=== PATIENT | male | born 1995 | race Caucasian/White ===

== ENCOUNTER 2017-10-14 14:46 | Emergency (ER) | payer SELFPAY ==
[~2017-10-14] VITALS: Ht 180.3 cm; Wt 70.3 kg
[2017-10-14 15:08] VITALS: BP 137/81
--- NOTE | 2017-10-14 15:47 | Emergency Room Report ---
History of Present Illness General Chief Complaint: Laceration Source: Patient Nursing Documentation-[facility] Past Medical History: No Stated History Physical Exam Vital Signs Date Time Temp Pulse Resp B/P (MAP) Pulse Ox O2 Delivery O2 Flow Rate FiO2 10/14/17 14:48 98.1 77 18 137/81 98 Room Air Medical Decision Making Last Vital Signs Date Time Temp Pulse Resp B/P (MAP) Pulse Ox O2 Delivery O2 Flow Rate FiO2 10/14/17 15:08 98.1 18 137/81 98 Room Air 10/14/17 14:48 77 Disposition: LEFT W/OUT BEING SEEN Referrals: NON PHYSICIAN (PCP) MICHOACANO DIEGO M.D. Oct 14, 2017 15:47
== END 2017-10-14 16:30 | disposition left against medical advice (07) ==
LOC: EMR 15:01
DX: S01.91XA Laceration without foreign body of unspecified part of head, initial encounter (principal); Z53.21 Procedure and treatment not carried out due to patient leaving prior to being seen by health care provider
CPT/HCPCS: 99281